=== PATIENT | female | born 2000 | race Caucasian/White ===

== ENCOUNTER 2023-01-15 17:21 | Emergency (ER) | payer OTHER ==
[~2023-01-15] VITALS: Ht 160 cm; Wt 77.0 kg
[2023-01-15 17:32] VITALS: BP 154/84
[2023-01-15] MEDS ORDERED: SODIUM CHLORIDE 0.9% 1,000 ML IV ONE (19:45)
[2023-01-15] MEDS ORDERED: CEFTRIAXONE 1GM PREMIX 50 ML IV ONE (19:45)
[2023-01-15 20:24] LABS: BASOPHILS % 0.3 % (0.0-2.0); EOSINOPHILS % 0.6 % (0.0-5.0); HEMOGLOBIN. 14.5 g/dL (12.0-16.0); LYMPHOCYTES % 30.5 % (20.0-50.0); MEAN CORPUSCULAR HEMOGLOBIN 33.1 pg (28.0-32.0); MEAN CORPUSCULAR VOLUME 95.7 fL (81.0-99.0); MONOCYTES % 8.9 % (2.0-8.0); NEUTROPHILS % 59.7 % (40.0-76.0); PLATELET 251 x1000/uL (130-400); RED BLOOD CELL COUNT 4.39 mill/uL (4.2-5.4); RED CELL DISTRIBUTION WIDTH 12.7 % (11.6-14.6)
[2023-01-15 20:28] LABS: CHLORIDE 100 mEq/L (98-107)
[2023-01-15 20:29] LABS: HCG SCREEN NEGATIVE
[2023-01-15 20:37] LABS: BETA HYDROXYBUTYRATE 0.8 mMol/L (0.0-0.3)
[2023-01-15] MEDS ORDERED: SULF1TAB48 MT (21:45)
[2023-01-15] MEDS ORDERED: CEPH500C2 MT (21:45)
[2023-01-15] MEDS ORDERED: SULFAMETHOXAZOLE/TRIMETHOPRIM 800/160MG TABLET PO ONE (21:45)
[2023-01-15] MEDS ORDERED: IBUP-2028 MT (21:46)
== END 2023-01-15 22:12 | disposition home or self-care (01) ==
LOC: ER 17:21
DX: M79.674 Pain in right toe(s) (principal); L03.031 Cellulitis of right toe; E11.65 Type 2 diabetes mellitus with hyperglycemia
CPT/HCPCS: 36415; 73630; 80053; 81025; 82010; 82962; 84703; 85025; 87040; 96365; 99284; J0696; J7030

== ENCOUNTER 2025-04-01 10:47 | Emergency (ER) | payer OTHER ==
[~2025-04-01] VITALS: Ht 160 cm; Wt 76.0 kg
[~2025-04-01 10:47] MED LIST: CEPH500C2 MT; IBUP-2028 MT; SULF1TAB48 MT
[2025-04-01 10:54] VITALS: O2SAT 100
[2025-04-01] MEDS ORDERED: SULF1TAB48 MT (11:22)
[2025-04-01] MEDS ORDERED: CEPH500C2 MT (11:22)
[2025-04-01] MEDS: CEPHALEXIN 250MG CAPSULE PO ONE (11:40)
[2025-04-01 11:50] VITALS: BP 124/80; PULSE 92; RESP 18; TEMP 36.8; O2SAT 99
== END 2025-04-01 11:51 | disposition home or self-care (01) ==
LOC: ER 10:47
DX: L03.031 Cellulitis of right toe (principal); E11.9 Type 2 diabetes mellitus without complications; Z98.890 Other specified postprocedural states; Z79.899 Other long term (current) drug therapy
CPT/HCPCS: 99283